=== PATIENT | male | born 2000 | race Two or more races ===

== ENCOUNTER 2020-11-12 20:14 | Inpatient (IN) | payer OTHER ==
[~2020-11-12] VITALS: Ht 185.4 cm; Wt 81.8 kg
[2020-11-12 21:24] LABS: BASOPHILS % (AUTO) 1.5 % (0.0-2.0); EOSINOPHILS % (AUTO) 1.4 % (1.0-6.0); HEMOGLOBIN 14.6 g/dL (13.5-17.5); LYMPHOCYTES # (AUTO) 2.3 K/uL (1.0-4.8); LYMPHOCYTES % (AUTO) 37.3 % (22.0-44.0); MEAN CORPUSCULAR HEMOGLOBIN 30.6 pg (26.0-34.0); MEAN CORPUSCULAR VOLUME 90 fL (80-100); MONOCYTES # (AUTO) 0.5 K/uL (0.1-1.0); MONOCYTES % (AUTO) 8.1 % (2.0-9.0); NEUTROPHILS # (AUTO) 3.2 K/uL (1.8-7.7); NEUTROPHILS % (AUTO) 51.7 % (40.0-70.0); PLATELET COUNT (AUTO) 254 K/uL (150-450); RED BLOOD CELL COUNT(AUTO) 4.79 MIL/uL (4.50-5.90); RED CELL DISTRIBUTION WIDTH 12.3 % (11.5-14.5)
[2020-11-12 21:36] LABS: COVID AG,FIA SOURCE NASOPHARYNGEAL
[2020-11-12 21:41] LABS: ANION GAP 10 mmol/L (8-16); CALCIUM, TOTAL 9.1 mg/dL (8.8-10.5); CARBON DIOXIDE 29 mmol/L (22-29); CHLORIDE 105 mmol/L (98-107); CREATININE 0.74 mg/dL (0.60-1.30); GLOMERULAR FILTR. RATE CALC > 60 mL/min (>60); GLUCOSE,RANDOM 104 mg/dL (70-110); POTASSIUM 4.1 mmol/L (3.5-5.1); SODIUM SERUM 144 mmol/L (136-145); UREA NITROGEN, BLOOD 13 mg/dL (7-18)
[2020-11-12 21:44] LABS: ALANINE AMINOTRANSFERASE 31 U/L (12-78); ALBUMIN 4.4 g/dL (3.4-5.0); ALKALINE PHOSPHATASE 84 U/L (46-116); ASPARTATE AMINOTRANSFERASE 21 U/L (15-37); BILIRUBIN,TOTAL 0.3 mg/dL (0.1-1.0); TOTAL PROTEIN, SERUM 7.5 g/dL (6.4-8.2)
[2020-11-12] MEDS ORDERED: ZOLPIDEM TARTRATE 10 MG TABLET PO PRN (22:00)
[2020-11-12] MEDS ORDERED: HALOPERIDOL 5 MG TABLET PO PRN (22:00)
[2020-11-12] MEDS ORDERED: LORazepam 2 MG TABLET PO PRN (22:00)
[2020-11-12 22:01] LABS: AMPHET/METH SCREEN,URINE NEGATIVE (NEGATIVE); BARBITURATE SCREEN, URINE NEGATIVE (NEGATIVE); BENZODIAZEPINES SCREEN,URINE NEGATIVE (NEGATIVE); CANNABINOID SCREEN,URINE POSITIVE (NEGATIVE); COCAINE SCREEN,URINE NEGATIVE (NEGATIVE); METHADONE SCREEN, URINE NEGATIVE (NEGATIVE); OPIATE SCREEN,URINE NEGATIVE (NEGATIVE)
[2020-11-12 22:02] LABS: PHENCYCLIDINE SCREEN,URINE NEGATIVE (NEGATIVE)
[2020-11-13 02:19] VITALS: BP 148/88
[2020-11-13 09:05] VITALS: BP 122/57
[2020-11-13] MEDS: SERTRALINE HCL 50 MG TABLET PO SCH (14:00)
[2020-11-13 16:27] VITALS: BP 147/68
[2020-11-13 20:43] VITALS: BP 131/71
[2020-11-14 02:13] VITALS: BP 146/77
[2020-11-14 08:14] LABS: CHOL/HDL RATIO 3.3 (4.2-7.3)
[2020-11-14] MEDS: SERTRALINE HCL 50 MG TABLET PO SCH (08:38)
[2020-11-14 10:43] VITALS: BP 127/72
[2020-11-14 16:28] VITALS: BP 121/70
[2020-11-15 07:10] VITALS: BP 118/76
[2020-11-15] MEDS: SERTRALINE HCL 50 MG TABLET PO SCH (09:00)
[2020-11-15 09:23] VITALS: BP 136/71
[2020-11-15 16:14] VITALS: BP 110/57
[2020-11-16 06:28] VITALS: BP 136/84
[2020-11-16] MEDS: SERTRALINE HCL 50 MG TABLET PO SCH (08:48)
[2020-11-16 08:51] VITALS: BP 116/74
[2020-11-16] MEDS ORDERED: SERT-158 PO (09:40)
== END 2020-11-16 13:30 | disposition home or self-care (01) | DRG 881 ==
LOC: EMS 20:20 → B3A 22:00
DX: F32.9 Major depressive disorder, single episode, unspecified (principal); R45.851 Suicidal ideations; F12.90 Cannabis use, unspecified, uncomplicated; F11.90 Opioid use, unspecified, uncomplicated; F14.90 Cocaine use, unspecified, uncomplicated; R00.1 Bradycardia, unspecified; R03.0 Elevated blood-pressure reading, without diagnosis of hypertension; Z20.822 Contact with and (suspected) exposure to COVID-19; Z81.1 Family history of alcohol abuse and dependence; Z79.899 Other long term (current) drug therapy
CPT/HCPCS: 80053; 80061; 85025; 87491; 87591; 99285; G0480